=== PATIENT | female | born 2000 | race American Indian/Alaskan Native ===

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

== ENCOUNTER 2020-07-27 13:53 | Emergency (ER) | payer OTHER ==
[~2020-07-27] VITALS: Ht 160 cm; Wt 52.2 kg
== END 2020-07-27 15:30 | disposition home or self-care (01) ==
LOC: ED 13:53
DX: F11.10 Opioid abuse, uncomplicated (principal); F17.200 Nicotine dependence, unspecified, uncomplicated
CPT/HCPCS: 80053; 80176; 81001; 84703; 85025; 87077; 87088; 87186; 99282; G0480

== ENCOUNTER 2021-02-03 14:56 | Emergency (ER) | payer OTHER ==
[~2021-02-03] VITALS: Ht 160 cm; Wt 52.2 kg
[2021-02-03] MEDS ORDERED: PRENATAL VITAM1 EAC5 PO (15:14)
[2021-02-03] MEDS ORDERED: PEPCID20 MG PO (18:44)
[2021-02-03] MEDS ORDERED: PROMETHAZINE HC25 M1 PO (18:44)
[2021-02-03] MEDS ORDERED: CEPHALEXIN500 M1 PO (18:44)
== END 2021-02-03 19:00 | disposition home or self-care (01) ==
LOC: ED 14:56
DX: O23.42 Unspecified infection of urinary tract in pregnancy, second trimester (principal); O99.612 Diseases of the digestive system complicating pregnancy, second trimester; K21.9 Gastro-esophageal reflux disease without esophagitis; Z3A.24 24 weeks gestation of pregnancy; O99.332 Smoking (tobacco) complicating pregnancy, second trimester; F17.200 Nicotine dependence, unspecified, uncomplicated
CPT/HCPCS: 80053; 81001; 83735; 85025; 87077; 87088; 87186; 96374; 96375; 99284-25; J0696; J2405; J7030

== ENCOUNTER 2021-02-15 14:33 | Emergency (ER) | payer OTHER ==
[~2021-02-15] VITALS: Ht 160 cm; Wt 59.4 kg
[~2021-02-15 14:33] MED LIST changes: +CEPHALEXIN500 M1 PO; +PEPCID20 MG PO; +PRENATAL VITAM1 EAC5 PO; +PROMETHAZINE HC25 M1 PO
--- OUTSIDE RECORDS SUMMARY | 2021-02-15 14:42 | XMS ---
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 E.D. VISIT COUNT (12 MO.) 3 [facility] TOTAL 3 NOTE: Visits indicate total known visits. ED/UCC VISIT TRACKING (12 MO.) 02/15/2021 14:33 [facility] [place] TYPE: Emergency COMPLAINT: - NAUSEA/VOMITTING 02/03/2021 14:57 [facility] [place] TYPE: Emergency COMPLAINT: - NAUSEA/VOMITING/WEAKNESS DIAGNOSES: - Diseases of the digestive system complicating , second trimester - Vomiting, unspecified - 24 weeks gestation of - Nicotine dependence, unspecified, uncomplicated - Gastro-esophageal reflux disease without esophagitis - Unspecified infection of urinary tract in , second trimester - Smoking (tobacco) complicating , second trimester - Nausea with vomiting, unspecified 07/27/2020 13:54 [facility] [place] TYPE: Emergency COMPLAINT: - POSSIBLE OD DIAGNOSES: - Opioid abuse, uncomplicated - Nicotine dependence, unspecified, uncomplicated INPATIENT VISIT TRACKING (12 MO.) No inpatient visits to display in this time frame [email or web address]
[2021-02-15] MEDS ORDERED: ZOFRAN4 MG PO (22:52)
[2021-02-15] MEDS ORDERED: CEPHALEXIN500 MG PO (22:52)
== END 2021-02-15 23:18 | disposition home or self-care (01) ==
LOC: ED 14:33
DX: O21.9 Vomiting of pregnancy, unspecified (principal); Z3A.24 24 weeks gestation of pregnancy; F17.200 Nicotine dependence, unspecified, uncomplicated; Z79.899 Other long term (current) drug therapy
CPT/HCPCS: 80053; 81001; 83690; 85025; 96374; 96375; 99284-25; J2405; J7030

== ENCOUNTER 2021-04-28 19:30 | Inpatient (IN) | payer OTHER ==
[~2021-04-28 19:30] MED LIST changes: +ZOFRAN4 MG PO
--- NOTE | 2021-04-28 21:28 | NUR ---
PT WAS SWABBED FOR COVID 19
--- NOTE | 2021-04-29 13:56 | PR ---
[facility] [address], [place] [address] Signed PP Progress Notes Datetime Report Generated by CPN: 04/29/2021 13:56 SUBJECTIVE: [id number] Pain: Within Normal Limits Nausea/Vomiting: Denies Flatus: Yes Bowel Movement: No Vital Signs: [id number] Vital Signs: Reviewed; Within Normal Limits Cardiovascular: Normal Respiratory: Normal Abdomen/Uterus: Normal Lochia: Normal Vulva/Perineum: Not Done Breasts: Not Done CVA Tenderness: Normal Extremities: Normal Incision: Not Applicable Progress: Normal Exam Comments: Fundus firm nontender IMPRESSION/PLAN/PROCEDURES: [id number] Impression: Normal Progression Progress Notes: Pt seen and examined. Doing well. Ambulating, voiding, and tolerating full diet. Pain and lochia minimal. ok per peds and supplementing w/ formula. No fever/chills or URI sx despite COVID+ screen. Per pt, symptomatic _ 6 wks ago. No questions or concers. Signing Physician: Yary Rubio DO Copies: ~ *Electronically Signed* 04/29/21 3266 YARY RUBIO DO PATIENT NAME: LAURA ROBERTS PROGRESS NOTE DATE OF : 00 PHYSICIAN: YARY RUBIO DO RPT #: [id number] REPORT IS CONFIDENTIAL AND NOT TO BE RELEASED WITHOUT AUTHORIZATION
--- NOTE | 2021-04-30 12:54 | PR ---
[facility] [address] [place], [place] [address] Signed PP Progress Notes Datetime Report Generated by CPN: 04/30/2021 12:54 SUBJECTIVE: [id number] Pain: Within Normal Limits Pain Comments: worrying about her baby and possible removal Nausea/Vomiting: Denies Flatus: Yes Bowel Movement: No Vital Signs: [id number] Vital Signs: Reviewed; Within Normal Limits Cardiovascular: Not Done Respiratory: Not Done Abdomen/Uterus: Abnormal Lochia: Normal Vulva/Perineum: Not Done Breasts: Not Done CVA Tenderness: Not Done Extremities: Normal Incision: Not Applicable Progress: Not Applicable Exam Comments: Fundus firm, NT @ U-1. H/H 12.1/37, WBC 14.5, plat 361k IMPRESSION/PLAN/PROCEDURES: [id number] Impression: Normal Progression Progress Notes: She is doing well physically at this time but is upset about children's services not contacting her yet. She would like to know what is going on with this. She is ready for discharge herself but given the uncertainty about her baby will wait for discharge for now. Signing Physician: Rachana Lentz MD Copies: ~ *Electronically Signed* 04/30/21 3434 RACHANA LENTZ MD PATIENT NAME: LAURA ROBERTS PROGRESS NOTE DATE OF : 00 PHYSICIAN: RACHANA LENTZ MD RPT #: [id number] REPORT IS CONFIDENTIAL AND NOT TO BE RELEASED WITHOUT AUTHORIZATION
== END 2021-04-30 18:45 | disposition home or self-care (01) | DRG 805 ==
LOC: FBCO 19:30 → FBC 20:00
PROVIDERS: ADMIT Obstetrics & Gynecology; ATTEND Obstetrics & Gynecology
PROC: 10E0XZZ Delivery of Products of Conception, External Approach (ICD-10-PCS; principal; 2021-04-28)
PROC: 0UQMXZZ Repair Vulva, External Approach (ICD-10-PCS; 2021-04-28)
PROC: 3E0R3BZ Introduction of Anesthetic Agent into Spinal Canal, Percutaneous Approach (ICD-10-PCS; 2021-04-28)
PROC: 00HU33Z Insertion of Infusion Device into Spinal Canal, Percutaneous Approach (ICD-10-PCS; 2021-04-28)
DX: O60.14X0 Preterm labor third trimester with preterm delivery third trimester, not applicable or unspecified (principal); U07.1 COVID-19; Z37.0 Single live birth; O99.324 Drug use complicating childbirth; O98.52 Other viral diseases complicating childbirth; Z3A.35 35 weeks gestation of pregnancy; O62.3 Precipitate labor; O77.0 Labor and delivery complicated by meconium in amniotic fluid; O71.82 Other specified trauma to perineum and vulva; O99.334 Smoking (tobacco) complicating childbirth; F17.200 Nicotine dependence, unspecified, uncomplicated; F15.90 Other stimulant use, unspecified, uncomplicated
CPT/HCPCS: 01960; 82803; 85027; A9270; J2274; J2590; J3010; J7121; U0003

== ENCOUNTER 2021-07-19 13:14 | Emergency (ER) | payer OTHER ==
[~2021-07-19] VITALS: Ht 157.5 cm; Wt 44.0 kg
--- OUTSIDE RECORDS SUMMARY | 2021-07-19 13:22 | XMS ---
PreManage Notification: LAURA ROBERTS Security Is Support Analyst Events No recent Security Events currently on file CRITERIA MET - ED - Positive COVID-19 Lab Result - [facility] CARE PROVIDERS GIOVANNI BECERRA [facility] Current PHONE: [phone] [facility] Clinic/Center: Multi-Specialty 03/04/2019-Current PHONE: [phone] RODERICK EDWARDS Heat Transfer Technician/Quad Stayer Current REGIONAL CARE TEAM PHONE: Unknown Mercedes has no Care Guidelines for this patient. Care History Medical/Surgical 04/02/2021 [facility] - PATIENT RECENTLY DISCHARGED FROM HOSPITAL- HIGH RISK FOR FOLLOW UP - [facility] IS UNABLE TO CONTACT PATIENT DUE TO PATIENT CONTACT # NO LONGER IN SERVICE. - PLEASE CONTACT CASE MANAGEMENT IF PATIENT IS SEEN IN ED. 02/19/2021 [facility] - PLEASE CONTACT CASE MANAGEMENT IF PATIENT IS SEEN IN THE ED - PATIENT WOULD BENEFIT FROM [facility] REFERRAL- [facility] TEAM - PATIENT HAS NOT BEEN FOLLOWING UP WITH RAUL RANGEL- 12/27/20- LAST APT SCHEDULED AND PATIENT NO SHOWED. - PER OBCAIL[facility] PATIENT IS CURRENTLY LIVING ON THE [address]. - UNABLE TO CONTACT BY TELEPHONE. E.D. VISIT COUNT (12 MO.) 5 [facility]. TOTAL 5 NOTE: Visits indicate total known visits. ED/C VISIT TRACKING (12 MO.) 07/19/2021 13:[address] [facility] [address] [facility] [place] TYPE: Emergency COMPLAINT: - LARGE LUMP ON BACK OF HEAD/NECK 03/28/2021 20:[address] [facility] [address] [place] TYPE: Emergency COMPLAINT: - VOMITING,NAUSEA 02/15/2021 14:[address] [facility] [facility] [place] TYPE: Emergency COMPLAINT: - NAUSEA/VOMITING DIAGNOSES: - Vomiting of , unspecified - Other penitentiary (current) drug therapy - 24 weeks gestation of - Nausea with vomiting, unspecified - Nicotine dependence, unspecified, uncomplicated 02/03/2021 14:[address] [facility] [address] [facility] [place] TYPE: Emergency COMPLAINT: - NAUSEA/VOMITING/WEAKNESS DIAGNOSES: [...] unspecified, uncomplicated INPATIENT VISIT TRACKING (12 MO.) 04/28/2021 20:00 [facility] [place] TYPE: [facility] COMPLAINT: - LABOR DIAGNOSES: - Smoking (tobacco) complicating childbirth - Nicotine dependence, unspecified, uncomplicated - Drug use complicating childbirth - Single live - COVID-19 - Other stimulant use, unspecified, uncomplicated - labor third trimester with delivery third trimester, not applicable or unspecified - Smoking (tobacco) complicating childbirth - Drug use complicating childbirth - Other specified trauma to perineum and vulva - Other viral diseases complicating childbirth - Single live - Labor and delivery complicated by meconium in amniotic fluid - labor third trimester with delivery third trimester, not applicable or unspecified - Precipitate labor - Other specified trauma to perineum and vulva - COVID-19 - labor without delivery, third trimester - Other viral diseases complicating childbirth - Labor and delivery complicated by meconium in amniotic fluid - Precipitate labor - Other stimulant use, unspecified, uncomplicated - 35 weeks gestation of - Nicotine dependence, unspecified, uncomplicated - 35 weeks gestation of 04/01/2021 03:01 [facility] [place] TYPE: Observation COMPLAINT: - DEHYDRATION DIAGNOSES: - 31 weeks gestation of - 32 weeks gestation of - Upper abdominal pain, unspecified - Endocrine, nutritional and metabolic diseases complicating , third trimester - Dehydration - Other specified related conditions, third trimester - Diseases of the digestive system complicating , third trimester - Gastro-esophageal reflux disease without esophagitis - Hypokalemia - Hypomagnesemia [email or web address]
[2021-07-19] MEDS ORDERED: BACTRIM DS TAB1 EACH PO (16:39)
== END 2021-07-19 16:48 | disposition home or self-care (01) ==
LOC: ED 13:14
DX: L02.11 Cutaneous abscess of neck (principal); F17.200 Nicotine dependence, unspecified, uncomplicated
CPT/HCPCS: 10060; 99282-25; A9270

== ENCOUNTER 2022-01-01 18:24 | Emergency (ER) | payer OTHER ==
[~2022-01-01] VITALS: Ht 157.5 cm; Wt 44.0 kg
[~2022-01-01 18:24] MED LIST changes: +BACTRIM DS TAB1 EACH PO
[2022-01-01] MEDS ORDERED: PROTONIX40 MG PO (21:06)
[2022-01-01] MEDS ORDERED: CEPHALEXIN500 MG PO (21:06)
[2022-01-01] MEDS ORDERED: ONDANSETRON ODT8 MG PO (21:06)
== END 2022-01-01 21:26 | disposition home or self-care (01) ==
LOC: ED 18:24
DX: N39.0 Urinary tract infection, site not specified (principal); F17.200 Nicotine dependence, unspecified, uncomplicated
CPT/HCPCS: 36415; 74177; 80053; 81001; 83690; 84703; 85025; 99284-25; A9270; J7030; Q9967

== ENCOUNTER 2024-09-04 22:17 | Emergency (ER) | payer OTHER ==
[~2024-09-04] VITALS: Ht 157.5 cm; Wt 42.6 kg
[~2024-09-04 22:17] MED LIST changes: +ONDANSETRON ODT8 MG PO; +PROTONIX40 MG PO
[2024-09-04 22:44] LABS: BASOPHILS 0.7 % (0-2); HEMATOCRIT 43.9 % (35.0-50.0); HEMOGLOBIN 14.8 g/dL (12.0-18.0); LYMPHOCYTES 14.7 % (24-44); MCH 31.5 (27-36); MCHC 33.8 g/dl (30-36); MCV 93.1 fl (81-99); NEUTROPHILS 80.6 % (39-80); PLATELET COUNT 653 K/uL (140-440); RBC 4.71 M/ul (4.3-5.7); RDW 14.4 (10.5-15.0)
[2024-09-04] MEDS ORDERED: LACTATED RINGER'S 1,000 ML IV ONE (22:45)
[2024-09-04] MEDS ORDERED: PANTOPRAZOLE SODIUM 40 MG/10 ML VIAL IV ONE (22:45)
[2024-09-04] MEDS ORDERED: FAMOTIDINE 20 MG/ 2 ML VIAL IV ONE (22:45)
[2024-09-04] MEDS ORDERED: ondansetron HCL 4 MG/2 ML VIAL IV ONE (22:45)
[2024-09-04 22:59] LABS: ALBUMIN/GLOBULIN RATIO 0.83 (1.1-2.4); ANION GAP 11.9 (7-21); BILIRUBIN, TOTAL 0.4 ng/dL (0.2-1.0); BUN/CREATININE RATIO 30.39 (6.0-28.6); CALCIUM 9.2 mg/dL (8.5-10.1); CREATININE, SERUM 1.02 mg/dL (0.55-1.02); POTASSIUM 2.9 mmol/L (3.5-5.1); PROTEIN, TOTAL 8.8 g/dL (6.4-8.2)
[2024-09-04 23:05] LABS: INR 1.02 (0.80-1.30); PARTIAL THROMBOPLASTIN TIME 27.7 Sec (22.9-41.3); PROTIME 13.3 Sec (11.2-14.2)
[2024-09-04] MEDS ORDERED: POTASSIUM CHLORIDE 10 MEQ TABCR PO ONE (23:15)
[2024-09-05] MEDS ORDERED: LACTATED RINGER'S 1,000 ML IV ONE (00:15)
[2024-09-05] MEDS ORDERED: POTASSIUM CHLORIDE 10 MEQ TABCR PO ONE (00:15)
[2024-09-05] MEDS ORDERED: K-TAB ER20 MEQ PO (00:34)
[2024-09-05] MEDS ORDERED: OMEPRAZOLE20 MG PO (00:34)
[2024-09-05] MEDS ORDERED: ONDANSETRON 4 MG HOME.PACK SL ONE (00:45)
[2024-09-05 01:43] LABS: BILIRUBIN, URINE NEGATIVE (negative); BLOOD/HGB, URINE NEGATIVE (Negative); KETONE, URINE NEGATIVE (Negative); LEUK ESTERASE, URINE SMALL (negative); NITRITE, URINE NEGATIVE (negative); PH, URINE 7.5 (5-7)
[2024-09-05 01:54] LABS: BACTERIA, URINE 2+ /hpf (negative); CASTS, URINE NONE SEEN \\lpf; COLLECTION TYPE, URINE CLEAN CATCH; CRYSTALS, URINE NONE SEEN (0-1+); EPITHELIAL CELLS, URINE SQUAMOUS 1+ /lpf (0-1+); REFLEX CULTURE, URINE Yes (No); WHITE BLOOD CELLS, URINE 41-50 /HPF (0-5)
[2024-09-05 01:57] LABS: AMPHETAMINES, URINE POSITIVE (NEGATIVE); BARBITURATES, URINE NEGATIVE (NEGATIVE); BENZODIAZEPINE, URINE NEGATIVE (NEGATIVE); BUPRENORPHINE, URINE NEGATIVE (NEGATIVE); CANNABINOID, URINE NEGATIVE (NEGATIVE); COCAINE, URINE NEGATIVE (NEGATIVE); ECSTASY, URINE NEGATIVE (NEGATIVE); FENTANYL, URINE POSITIVE (NEGATIVE); METHADONE, URINE NEGATIVE (NEGATIVE); OPIATES, URINE NEGATIVE (NEGATIVE); OXYCODONE, URINE NEGATIVE (NEGATIVE); PHENCYCLIDINE, URINE NEGATIVE (NEGATIVE)
[2024-09-05] MEDS ORDERED: MACROBID 100 M100 MG PO (02:00)
[2024-09-05] MEDS ORDERED: NITROFURANTOIN MONOHYD MACROCR 100 MG HOME.PACK PO ONE (02:00)
[2024-09-05 02:19] VITALS: BP 138/67
== END 2024-09-05 02:20 | disposition home or self-care (01) ==
LOC: ED 22:17
PROVIDERS: Internal Medicine
DX: K21.9 Gastro-esophageal reflux disease without esophagitis (principal); N39.0 Urinary tract infection, site not specified; E87.6 Hypokalemia; F17.200 Nicotine dependence, unspecified, uncomplicated; Z79.899 Other long term (current) drug therapy
CPT/HCPCS: 36415; 51798; 80053; 80307; 81001; 83690; 83735; 84703; 85025; 85610; 85730; 87077; 87088; 87186; 96374; 96375; 99284-25; A9270; J2405; J2470; J7121